=== PATIENT | female | born 1980 | race Caucasian/White ===

== ENCOUNTER 2016-08-13 19:51 | Emergency (ER) | payer OTHER ==
[~2016-08-13] VITALS: Ht 157.5 cm; Wt 78.5 kg
[~2016-08-13 19:51] MED LIST: UDKCL40 PO
[2016-08-13 19:56] VITALS: Ht 157.5 cm; Wt 78.5 kg
--- NOTE | 2016-08-13 20:28 | ERD ---
ER Documentation Chief Complaint Date/Time DATE: 08/13/16 TIME: 20:28 Chief Complaint bilateral earache x 2 days HPI 35-year-old female with chief complaint of constant bilateral ear pain 2 days, worse on the left side. Patient states that she had similar symptoms recently, was given antibiotics in the pain temporarily resolved. She does not recall how many weeks ago she was given the antibiotics however states it was within the past 3 months. She states that associated symptoms include fever, dizziness, and ear discharge/bleeding. She denies sore throat, cough, shortness of breath, neck stiffness, rhinorrhea, tinnitus, hearing loss and nausea/vomiting. She states that the pain is now severe rating it a 10 out of 10 in severity. That the pain is exacerbated by sleeping on her left side. She has been taking Advil and Sudafed with no relief of her pain. She denies any recent travel and no sick contacts. ROS All systems reviewed and are negative except as per history of present illness. Medications Home Meds Active Scripts Meclizine Hcl* (Antivert*) 12.5 Mg Tab, 12.5 MG PO Q6H Y for DIZZINESS, #20 TAB Prov:Jacqui Zapata-C 08/13/16 Amoxicillin/Potassium Clav (Amox-Clav 875-125 mg Tablet) 875-125 mg Tab, 1 TAB PO BID for 7 Days, #14 TAB Prov:Jacqui Zapata-C 08/13/16 Ibuprofen* (Motrin*) 600 Mg Tab, 600 MG PO Q6, #30 TAB Prov:Jacqui Zapata-C 08/13/16 Hydrocodone/Acetaminophen ([place] 5-325 Tablet) 1 Each Tablet, 1 TAB PO Q6H Y for PAIN, #7 TAB Prov:Jacqui ZapataC 08/13/16 Potassium Chloride* (KCl*) 40 Meq/30 Ml Soln, 40 MEQ PO DAILY for 7 Days, MEQ Prov:SUYAPA HARTMANN DO 09/09/15 Allergies Allergies: Coded Allergies: No Known Allergy (Unverified , 03/31/12) PMhx/Soc History of Surgery: Yes (right wrist surgery, breast augmentation) Anesthesia Reaction: No Hx Neurological Disorder: No Hx Respiratory Disorders: No Hx Cardiac Disorders: Yes (htn) Hx Psychiatric Problems: No Hx Miscellaneous Medical Probl: Yes (leukemia) Hx Alcohol Use: Yes (socially) Hx Substance Use: No Hx Tobacco Use: No Physical Exam Vitals Vital Signs Date Time Temp Pulse Resp B/P Pulse Ox O2 Delivery O2 Flow Rate FiO2 08/13/16 19:56 98.5 91 20 144/88 97 Physical Exam GENERAL: Non-toxic. Mild distress secondary to pain. Patient holding hand over her left ear. HEENT: Atraumatic. Bilateral eyes are PERRL EOM intact. Normal conjunctiva, no injection. No eyelid or lower eyelid swelling noted. Ears: Bulging and mildly erythematous TM on left side with white exudate seen behind the TM, dull to light reflex. Right right side has exudate behind TM with no erythema or bulging. No ear canal swelling, discharge or bleeding. Nose: no nasal discharge. Throat: Oropharynx normal. Tongue pink and moist. No tonsillar swelling or tonsillar exudates. No lymphadenopathy. LUNGS: Clear to auscultation. No accessory muscle use. No wheezing, no crackles. No signs or symptoms of respiratory distress. HEART: Regular rate and rhythm. No murmurs, clicks, rubs or gallops. NEURO: Cranial nerves are grossly intact. Normal mental status for age. Good muscle tone. SKIN: There is no apparent rash, petechiae, erythema or swelling. Good skin turgor. Procedures/MDM Patient was clearly mild distress secondary to pain, and had hand over her left ear stating that she had had severe ear pain for 2 days. She also complained of dizziness and ear discharge/bleeding. States that she was recently on antibiotics for an ear infection she believes was more than 1 month ago but within the past 3 months. She states that antibiotics resolved her infection however symptoms have not returned. On physical exam the left TM is mildly erythematous, dull to light reflex, and there was significant amount of white exudate behind the TM. The right TM also had exudate however no signs of erythema. Neither TM is perforated, there is no ear canal swelling, and no active discharge or bleeding in the ear canal. Patient stated that she also had noticed left-sided facial swelling, however she states that this has resolved. I explained to the patient that her symptoms may be due to significant sinus pressure and exudative buildup, swelling in the left side of the face might have been due to parotitis. However due to the mild erythema and significant pain particularly over the patient's left ear I prescribed Augmentin, given the fact that the patient has recently been on antibiotic therapy for an ear infection in addition to possibly having symptoms of parotitis. Currently patient appears to be in pain however she is afebrile with stable for discharge and outpatient management. I provided a prescription for 7 tabs of Placentia for patient's severe pain, I explained the sedating effects of this medication and advised to only take when she is in severe pain that is not controlled by 600 mg ibuprofen Rx. I also prescribed the patient meclizine for her symptoms of dizziness, however I stated that this should resolve after infection clears. In any case the patient should follow-up with her primary care physician and possibly request referral to ENT for recurrence ear pain and infection. At this time low suspicion for mastoiditis, malignant otitis externa, meningitis , cellulitis, and sepsis. Patient is stable for discharge and outpatient management. Advised to follow with PCP in one to 2 days. Departure Diagnosis: Primary Impression: Suppurative otitis media Laterality: left Chronicity: acute Recurrence: recurrent Spontaneous tympanic membrane rupture: without spontaneous rupture Qualified Code: H66.005 - Recurrent acute suppurative otitis media without spontaneous rupture of left tympanic membrane Jacqui Zapata PA-C Aug 13, 2016 20:28
[2016-08-13] MEDS ORDERED: HYDR-906 PO (20:32)
[2016-08-13] MEDS ORDERED: AMOX1TAB10 PO (20:32)
[2016-08-13] MEDS ORDERED: MECL12.574 PO (20:32)
[2016-08-13] MEDS ORDERED: IBUP-1542 PO (20:32)
== END 2016-08-13 21:03 | disposition home or self-care (01) ==
LOC: E/R 19:51
DX: H66.005 Acute suppurative otitis media without spontaneous rupture of ear drum, recurrent, left ear (principal); I10 Essential (primary) hypertension
CPT/HCPCS: 99284

== ENCOUNTER 2016-10-17 11:33 | Emergency (ER) | payer OTHER ==
[~2016-10-17] VITALS: Ht 157.5 cm; Wt 75.0 kg
[~2016-10-17 11:33] MED LIST changes: +AMOX1TAB10 PO; +HYDR-906 PO; +IBUP-1542 PO; +MECL12.574 PO
[2016-10-17 11:53] VITALS: Ht 157.5 cm; Wt 75.0 kg
[2016-10-17] MEDS ORDERED: SOD CHLORIDE 0.9% 1,000 ML IV STA (12:24)
[2016-10-17] MEDS ORDERED: LORAZEPAM 2 MG INJ IV ONE ×2 (12:30→16:00)
[2016-10-17 12:42] LABS: ADD SCAN DIFF NO
[2016-10-17 12:46] LABS: BASOPHILS % 0.2 % (0.0-2.0); EOSINOPHILS # 0.1 10^3/ul (0.0-0.5); EOSINOPHILS % 1.1 % (0.0-7.0); HEMATOCRIT 39.8 % (37.0-47.0); HEMOGLOBIN 13.8 g/dl (12.0-16.0); LYMPHOCYTES # 3.3 10^3/ul (0.8-2.9); LYMPHOCYTES % 25.7 % (15.0-51.0); MEAN CORPUSCULAR HEMOGLOBIN 31.3 pg (29.0-33.0); MEAN CORPUSCULAR HGB CONC 34.7 g/dl (32.0-37.0); MEAN CORPUSCULAR VOLUME 90.2 fl (82.0-101.0); MEAN PLATELET VOLUME 11.2 fl (7.4-10.4); MONOCYTE # 0.9 10^3/ul (0.3-0.9); MONOCYTES % 6.9 % (0.0-11.0); NEUTROPHIL # 8.5 10^3/ul (1.6-7.5); NEUTROPHILS % 65.9 % (39.0-77.0); PLATELET COUNT 361 10^3/UL (140-415); RED BLOOD COUNT 4.41 10^6/ul (4.20-5.40); RED CELL DISTRIBUTION WIDTH 13.8 % (11.5-14.5); WHITE BLOOD COUNT 12.9 10^3/ul (4.8-10.8)
[2016-10-17 12:59] LABS: ALBUMIN 5.1 g/dl (3.3-4.9); CHLORIDE 98 mmol/L (97-110); SODIUM 140 mmol/L (135-144)
[2016-10-17 13:01] LABS: CREATININE 0.69 mg/dl (0.44-1.00); POTASSIUM 2.4 mmol/L (3.5-5.1)
[2016-10-17] MEDS ORDERED: POTASSIUM CHLORIDE (SR) 20 MEQ TAB PO STA (13:01)
[2016-10-17 13:02] LABS: ALANINE AMINOTRANSFERASE 33 IU/L (13-69); ALBUMIN/GLOBULIN RATIO 1.27; ALKALINE PHOSPHATASE 77 IU/L (42-121); ANION GAP 21 (8-16); ASPARTATE AMINO TRANSFERASE 38 IU/L (15-46); BILIRUBIN,INDIRECT 1.3 mg/dl (0-1.1); BILIRUBIN,TOTAL 1.3 mg/dl (0.2-1.3); BLOOD UREA NITROGEN 15 mg/dl (7-20); CALCIUM 9.9 mg/dl (8.4-10.2); CARBON DIOXIDE 23 mmol/L (21-31); GLUCOSE 98 mg/dl (70-220); TOTAL PROTEIN 9.1 g/dl (6.1-8.1)
[2016-10-17 13:06] LABS: INR 0.99; PROTIME 13.1 Sec (12.2-14.2)
[2016-10-17 13:15] LABS: TROPONIN-I < 0.012 ng/ml (0.00-0.12)
[2016-10-17] MEDS ORDERED: NAPR-685 PO (13:16)
[2016-10-17] MEDS ORDERED: IBUP800T25 PO (13:16)
--- NOTE | 2016-10-17 13:16 | RADRPT ---
PROCEDURE: XR Chest. CLINICAL INDICATION: Abdominal pain. TECHNIQUE: Single frontal view. COMPARISON: 09/09/2015. FINDINGS: The lungs are clear. The heart size is normal. There is no pleural effusion. There is no pneumothorax. IMPRESSION: 1. Normal chest radiograph. 2. No change from 09/09/2015. RPTAT: QQ .Mynor Reardon MD, MD Date Time Electronically viewed and signed by .Mynor Reardon MD, MD on 10/17/2016 13:15 .R/
[2016-10-17] MEDS ORDERED: PROP20TA4 PO (13:18)
[2016-10-17] MEDS ORDERED: HYD25 PO (13:18)
[2016-10-17 13:20] LABS: FREE T3 5.37 pg/ml (2.77-5.27)
[2016-10-17 13:34] LABS: THYROID STIMULATING HORMONE 2.28 MIU/L (0.465-4.680)
--- NOTE | 2016-10-17 13:48 | RADRPT ---
PROCEDURE: CT Brain without contrast. CLINICAL INDICATION: Cerebrovascular accident. Diplopia. TECHNIQUE: A CT of the brain without contrast was performed utilizing axial sections from the skul l base through the vertex. The patient was scanned without intravenous contrast enhancement. Sagitta l and coronal reformatted images were obtained using the data from the axial images. Total exam DLP is 630.20 mGy-cm. CTDIvol is 45.01 mGy. One or more of the following dose reduction techniques we re used: Automated exposure control, adjustment of the mA and/or kV according to patient size, use o f iterative reconstruction technique. COMPARISON: None available FINDINGS: There is normal antonio-white matter differentiation. The ventricles and cisterns are normal. There is no intracranial hemorrhage or space-occupying lesion. There is no skull fracture or lytic lesion. IMPRESSION: 1. Normal noncontrast CT scan of the brain. 2. No intracranial hemorrhage. RPTAT: QQ .Mynor Reardon MD, MD Date Time Electronically viewed and signed by .Mynor Reardon MD, on 10/17/2016 13:47 .R/
[2016-10-17] MEDS ORDERED: ASPIRIN 325 MG TAB PO ONE (14:30)
--- NOTE | 2016-10-17 14:58 | ERA ---
ER Documentation Chief Complaint Date/Time DATE: 10/17/16 TIME: 14:54 Chief Complaint Pt with Marte, double vision, crossed eye. hx of gluacoma. HPI 36-year-old woman presents with double vision, intermittent headaches 3 days, and states she fell about 2 weeks ago when all of her symptoms began. She does have a long history of severe anxiety and states she developed double vision about 3 AM today and has had 3 days of intermittent headaches and intermittent gait difficulty 2 weeks. 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 She denies drug abuse, no chest pain, no fevers or chills, no vomiting or diarrhea. ROS All systems reviewed and are negative except as per history of present illness. Medications Home Meds Active Scripts Meclizine Hcl* (Antivert*) 12.5 Mg Tab, 12.5 MG PO Q6H Y for DIZZINESS, #20 TAB Prov:Jacqui Zapata PA-C 08/13/16 Hydrocodone/Acetaminophen ([place] 5-325 Tablet) 1 Each Tablet, 1 TAB PO Q6H Y for PAIN, #7 TAB Prov:Jacqui Zapata PA-C 08/13/16 Reported Medications Hydrochlorothiazide* (Hydrochlorothiazide*) 25 Mg Tab, 25 MG PO BID, #60 TAB 10/17/16 Propranolol Hcl* (Propranolol Hcl*) 20 Mg Tablet, 20 MG PO DAILY, TAB 10/17/16 Ibuprofen* (Ibuprofen*) 800 Mg Tab, 800 MG PO Q6H Y for PAIN, TAB 10/17/16 Naproxen* (Naproxen*) 375 Mg Tablet, 375 MG PO DAILY, TAB 10/17/16 Discontinued Scripts Amoxicillin/Potassium Clav (Amox-Clav 875-125 mg Tablet) 875-125 mg Tab, 1 TAB PO BID for 7 Days, #14 TAB Prov:Jacqui Zapata PA-C 08/13/16 Ibuprofen* (Motrin*) 600 Mg Tab, 600 MG PO Q6, #30 TAB Prov:Jacqui Zapata PA-C 08/13/16 Potassium Chloride* (KCl*) 40 Meq/30 Ml Soln, 40 MEQ PO DAILY for 7 Days, MEQ Prov:SUYAPA HARTMANN DO 09/09/15 Allergies Allergies: Coded Allergies: No Known Allergy (Unverified , 10/17/16) PMhx/Soc Anxiety, possible psychiatric illness, hypertension, diabetes mellitus, previous stroke (possibly), glaucoma, transcutaneous electrical nerve stimulator for tardive dyskinesia and/or chorea both of which the patient has History of Surgery: Yes (right wrist surgery, breast augmentation) Anesthesia Reaction: No Hx Neurological Disorder: No Hx Respiratory Disorders: No Hx Cardiac Disorders: Yes (htn) Hx Psychiatric Problems: No Hx Miscellaneous Medical Probl: Yes (leukemia) Hx Alcohol Use: Yes (socially) Hx Substance Use: No Hx Tobacco Use: No Smoking Status: Never smoker FmHx Family History: No diabetes Physical Exam Vitals Vital Signs Date Time Temp Pulse Resp B/P Pulse Ox O2 Delivery O2 Flow Rate FiO2 10/17/16 12:30 Nasal Cannula 2 10/17/16 11:53 99.3 109 18 135/91 100 Physical Exam GENERAL: Well-developed, well-nourished, agitated, anxious HEENT: Moist mucous membranes, pink conjunctiva, no cervical spine tenderness or step-off deformities, no goiter, no jaundice or icterus, extraocular movements intact without pain. No submandibular induration, and no pharyngeal erythema NEURO: Alert and oriented 3, able to answer all my questions and follow commands, there is left ophthalmoplegia with deviation of the left eye medially , there is no nystagmus and right eye is not affected, pupils equal round reactive to light, she has no focal deficits or facial asymmetry, no pronator drift, no cerebellar signs, positive tardive dyskinesia positive chorea of the upper extremities, there is a component of cervical dystonia as well and it appears she is experiencing akathisia CARDIAC: Regular rate and rhythm, no murmurs rubs or gallops LUNGS: Clear bilaterally no wheezing crackles or stridor ABDOMEN: Soft nontender, no guarding, no rigidity, no rebound, no psoas sign no obturator sign. Normoactive bowel sounds SKIN: Warm and dry to touch, no abrasions, contusions, or hematomas, no lacerations, no ecchymosis, no target lesions, and without ulcers EXTREMITIES: No clubbing cyanosis or edema, calves are bilaterally symmetrical, no Homans sign, no popliteal cord sign. Distal pulses equal and bilateral PSYCH: Agitated Result Diagram: 10/17/16 1230 10/17/16 1230 Results 24 hrs Laboratory Tests Test 10/17/16 12:30 White Blood Count 12.910^3/ul Red Blood Count 4.4110^6/ul Hemoglobin 13.8g/dl Hematocrit 39.8% Mean Corpuscular Volume 90.2fl Mean Corpuscular Hemoglobin 31.3pg Mean Corpuscular Hemoglobin Concent 34.7g/dl Red Cell Distribution Width 13.8% Platelet Count 16328^3/UL Mean Platelet Volume 11.2fl Neutrophils % 65.9% Lymphocytes % 25.7% Monocytes % 6.9% Eosinophils % 1.1% Basophils % 0.2% Nucleated Red Blood Cells % 0.0/100WBC Neutrophils # 8.510^3/ul Lymphocytes # 3.310^3/ul Monocytes # 0.910^3/ul Eosinophils # 0.110^3/ul Basophils # 0.010^3/ul Nucleated Red Blood Cells # 0.010^3/ul Prothrombin Time 13.1Sec Prothrombin Time Ratio 1.0 INR International Normalized Ratio 0.99 Sodium Level 140mmol/L Potassium Level 2.4mmol/L Chloride Level 98mmol/L Carbon Dioxide Level 23mmol/L Anion Gap 21 Blood Urea Nitrogen 15mg/dl Creatinine 0.69mg/dl Glucose Level 98mg/dl Hemoglobin A1c 5.2% Calcium Level 9.9mg/dl Total Bilirubin 1.3mg/dl Direct Bilirubin 0.00mg/dl Indirect Bilirubin 1.3mg/dl Aspartate Amino Transf (AST/SGOT) 38IU/L Alanine Aminotransferase (ALT/SGPT) 33IU/L Alkaline Phosphatase 77IU/L Troponin I < 0.012ng/ml Total Protein 9.1g/dl Albumin 5.1g/dl Globulin 4.00g/dl Albumin/Globulin Ratio 1.27 Lipase 103U/L Thyroid Stimulating Hormone (TSH) 2.280MIU/L Free Thyroxine 1.20ng/dl Free Triiodothyronine (T3) pg/mL 5.37pg/ml Current Medications Medications (Trade) Dose Ordered Sig/Rickey Route PRN Reason Start Time Stop Time Status Last Admin Dose Admin Lorazepam 0.5 mg 0.5 mg ONCE ONCE IV 10/17/16 12:30 10/17/16 12:31 DC 10/17/16 13:12 Sodium Chloride (NS) 1,000 ml @ 1,000 mls/hr Q1H STAT IV 10/17/16 12:24 10/17/16 13:23 DC 10/17/16 13:12 Potassium Chloride (Klor-Con 20) 60 meq ONCE STAT PO 10/17/16 13:01 10/17/16 13:02 DC 10/17/16 13:14 Aspirin (Aspirin) 325 mg ONCE ONCE PO 10/17/16 14:30 10/17/16 14:31 DC 10/17/16 16:24 Lorazepam (Ativan) 1 mg ONCE ONCE IV 10/17/16 16:00 10/17/16 16:01 DC 10/17/16 16:25 Procedures/MDM IV line was established patient was placed on weight trainer rhythm strip revealed a sinus rhythm at about 80 bpm with upright P and T waves. Patient was afebrile. I administered 1 L normal saline intravenously and lorazepam 0.5 mg IV for her symptoms. She did not fall under the TPA administration time window and a code stroke protocol was not unnecessary and as a matter of fact contraindicated. EKG #1 was performed, read by me revealed a sinus tachycardia at 112 bpm, normal axis, narrow QRS complex, no concerning ST elevations or depressions noted. One AP view of the chest performed, read by me reveals no acute infiltrates, normal mediastinum, sharp costophrenic and cardiac borders, no air under the diaphragm. Otherwise unremarkable chest x-ray. CT scan of the brain was negative for acute bleed mass or shift. I administered aspirin 325 mg p.o. for neuroprotective measures. There were some concerning and contradictory findings to this patient's presentation. While in the waiting room and prior to seeing me her gait was completely normal although immediately after presentation to the inside of the emergency department she had a voluntary gait ataxia was which was witnessed by me and the charge nurse. Also for reevaluation purposes I entered the patient' s room on multiple different occasions and each time her left eye appeared midline while she was on the phone texting a friend or family member and had no difficulty with vision which is contradictory to her initial chief complaint of double vision. Furthermore on these occasions I saw that her left eye had complete normal movement including at the midline and past the midline laterally , although immediately after seeing me she was able to voluntarily abduct the left eye and her movement disorder would also increase. EKG #2 performed, read by me revealed a normal sinus rhythm at 88 bpm, normal axis, narrow QRS complex, no concerning ST elevations or depressions noted. Given these findings I ordered a stat MRI brain to rule out acute infarct, he was negative for acute or subacute infarct. MRI results in addition to these contradictory physical findings solidify my suspicion that patient's presentation was secondary to malingering. She possibly has benzodiazepine dependence and it seems this may have been her primary motivation today. I do not discount her past medical history which is extensive and places her at high risk for having either TIA or stroke, although I do not suspect she has any acute central or peripheral neurologic event today or recently. 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 CBC was unremarkable, electrolytes revealed hypokalemia 2.4, liver function tests are normal, troponin was negative. I treated her here with potassium supplementation orally at 60 mEq p.o. Neuro critical Care: Time: 40 minutes, this was time separate from other procedures. Treatments/Evaluations: Close monitoring repeat bedside physical and neurologic examinations, and treatment of unstable vital signs. All while maintaining tight balance of fluid, respiratory, neurologic, and cardiac interventions. Differential diagnoses considered, included but not limited to acute coronary syndrome, myasthenia gravis, multiple sclerosis, ophthalmoplegia, acute intoxication, medication and drug side effect, Guillain-Bethany' variant, sepsis, stroke and different stroke subtypes, meningitis, encephalitis, pneumonia, appendicitis, cystitis, as well as metabolic, hematologic, and electrolyte abnormalities. As well as abscess, cellulitis, fractures, and dislocations. Departure Diagnosis: Primary Impression: Anxiety attack Additional Impressions: Hypokalemia Tardive dyskinesia Chorea Condition: Stable MYRNA CARY MD Oct 17, 2016 14:58
--- NOTE | 2016-10-17 16:10 | RADRPT ---
PROCEDURE: MR Brain without contrast. CLINICAL INDICATION: Headache and diplopia. Weakness. TECHNIQUE: MRI brain without contrast was performed. Examination was performed on the high field MRI with the following sequences: Coronal gradient echo, sagittal T1-weighted, axial T1-weighted FL AIR, fast spin echo axial T2-weighted, axial T2-weighted FLAIR, sagittal T1-weighted FLAIR. axial d iffusion-weighted images, and axial ADC map images. The patient refused intravenous contrast. COMPARISON: None available FINDINGS: The ventricles and sulci are symmetric and normal. The antonio-white matter differentiation is preserv ed. No abnormal intra-axial or extra-axial fluid collection or mass lesion is identified. No hemor rhage or midline shift is seen. The clivus, sella turcica, corpus callosum, and midline structures are all unremarkable. The brainstem and posterior fossa structures are unremarkable. The cerebellop ontine angle regions are clear. No skull base abnormality is seen. The surrounding bony calvarium and soft tissue scalp is unremarkable. The orbits, as visualized, ar e unremarkable. The paranasal sinuses are clear The sagittal T1-weighted images and coronal gradient echo images are suboptimal due to patient motio n. IMPRESSION: 1. Normal noncontrast MRI of the brain. 2. No evidence of acute infarct. RPTAT: QQ .Mynor Reardon MD, MD Date Time Electronically viewed and signed by .Mynor Reardon MD, on 10/17/2016 16:10 .R/
[2016-10-17 17:37] VITALS: BP 122/59; PULSE 71; RESP 18; TEMP 98.3
== END 2016-10-17 18:30 | disposition home or self-care (01) ==
LOC: E/R 11:33
DX: F41.9 Anxiety disorder, unspecified (principal); E87.6 Hypokalemia; G24.01 Drug induced subacute dyskinesia; G25.5 Other chorea; T50.905A Adverse effect of unspecified drugs, medicaments and biological substances, initial encounter; I10 Essential (primary) hypertension; E11.9 Type 2 diabetes mellitus without complications
CPT/HCPCS: 36415; 70450; 70553; 71010; 80053; 83036; 83690; 84439; 84443; 84481; 84484; 85025; 85610; 96374; 96376; J2060; J7030; Z7502; Z7610